=== PATIENT | male | born 1990 | race African-American/Black ===

== ENCOUNTER 2025-10-13 08:45 | Emergency (ER) | payer OTHER ==
[~2025-10-13] VITALS: Ht 167.6 cm; Wt 94.3 kg
[2025-10-13] MEDS ORDERED: IBUP200T46 PO (08:52)
[2025-10-13] MEDS ORDERED: ACET-683 PO (08:52)
[2025-10-13] MEDS: METHOCARBAMOL 1,000 MG/10 ML VIAL IV ONE ×2 (10:54→17:38)
[2025-10-13] MEDS: KETOROLAC 30 MG/ML 1 ML VIAL IV ONE ×2 (10:56→16:35)
[2025-10-13] MEDS ORDERED: HOME MED LIST COMPLETE! XX SCH (11:25)
[2025-10-13] MEDS: HYDROMORPHONE HCL 0.5 MG/0.5 ML SYRINGE IV ONE (14:56)
[2025-10-13] MEDS: HYDROMORPHONE HCL 0.5 MG/0.5 ML SYRINGE IV PRN (17:36)
[2025-10-13 20:55] LABS: BASO # 0.0 10^3/uL (0.0-0.2); BASO % 0.5 % (0.0-1.0); EOS # 0.0 10^3/uL (0.0-0.5); EOS % 0.8 % (0.0-3.0); LYMPH # 1.8 10^3/uL (1.5-5.0); LYMPH % 45.4 % (24.0-44.0); MONO # 0.3 10^3/uL (0.0-0.8); MONO % 6.3 % (2.0-8.0); NEUTROPHILS # 1.9 10^3/uL (1.5-8.5); NEUTROPHILS % 46.7 % (36.0-66.0); PLATELET COUNT, AUTOMATED 224 10^3/uL (150-450)
[2025-10-13 21:17] LABS: CALCIUM LEVEL 8.8 MG/DL (8.5-10.1); CARBON DIOXIDE LEVEL 28 MMOL/L (20-31); CHLORIDE LEVEL 105 MMOL/L (98-107); CREATININE FOR GFR 0.94 MG/DL (0.70-1.30); GLOMERULAR FILTRATION RATE > 90.0 (>60); INR 1.07; POTASSIUM SERUM 3.8 MMOL/L (3.5-5.1); SODIUM LEVEL 142 MMOL/L (136-145)
[2025-10-14 00:21] VITALS: BP 125/79; TEMP 97.2
[2025-10-14] MEDS ORDERED: HYDROmorphone HCL 2 MG/ML 1 ML VIAL IV PRN (00:30)
[2025-10-14 00:36] VITALS: O2SAT 100
[2025-10-14] MEDS: HYDROMORPHONE HCL 0.5 MG/0.5 ML SYRINGE IV PRN (00:36)
== END 2025-10-14 00:20 | disposition short-term general hospital (02) ==
LOC: M ED 08:45
DX: M51.26 Other intervertebral disc displacement, lumbar region (principal)
CPT/HCPCS: 36415; 72110; 72148; 80048; 85025; 85610; 85730; 96374; 96375; 96376; 99285; J1171; J1885; J2800